=== PATIENT | male | born 1930 | race Hispanic/Latino ===

== ENCOUNTER 2019-09-13 16:49 | Emergency (ER) | payer MEDICARE, BC ==
[2019-09-13] MEDS ORDERED: Adacel (T-DAP) 0.5 ML SYRINGE ONE (17:27)
[2019-09-13] MEDS ORDERED: Lidocaine 2% w/Epinephrine 1:200K 20 ML VIAL ONE (17:49)
--- NOTE | 2019-09-13 17:58 | CT ---
CT OF THE BRAIN WITHOUT CONTRAST: 09/13/19 Diffuse atrophy is present with minimal compensatory dilatation of the ventricles. No intracranial bl eeding or extra-axial hematoma was seen. There is no sign of acute stroke, mass or edema. The calvari um appears intact. A lacerated area of swelling is seen over the left forehead. The visible paranasal sinuses are clear. IMPRESSION: No acute intracranial findings. POS: HOME
[2019-09-13] MEDS ORDERED: Bacitracin 1 PK ONE (18:04)
--- NOTE | 2019-09-13 19:33 | CT ---
CT OF THE CERVICAL SPINE 09/13/[address] of the cervical spine was performed for evaluation after trauma. Axial slices were acquired followed by coronal and sagittal reconstructions. No acute fracture was seen at any level. The C1 to dens distance is normal and the soft tissues are normal in thickness. 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 It is obviously old and not acute. Disc space narrowing is present at C5-C6. Findings by level follow: C1-C2: No acute findings. C2-C3: Mild central disc protrusion without evidence of impingement. Foramina patent. C3-C4: Mild right foraminal narrowing due to osteophytes. C4-C5: Mild right foraminal narrowing and facet arthritis on the right. C5-C6: Moderate bilateral foraminal narrowing due to osteophytes, left a little more so than right. C6-C7: No acute findings. C7-T1: No acute findings. Old T1 spinous process fracture noted. T1-T2: No acute findings. The lung apices are clear. No pneumothorax was seen. IMPRESSION: 1. Old spinous process fracture of T1 but no acute bony injuries were seen. 2. Scattered degenerative changes as noted. Scan called to Dr. Reilly at [id number] on 09/13/19. POS: HOME
== END 2019-09-13 18:25 | disposition home or self-care (01) ==
LOC: BURERS 16:49
DX: S01.81XA Laceration without foreign body of other part of head, initial encounter (principal); Z23 Encounter for immunization; W01.0XXA Fall on same level from slipping, tripping and stumbling without subsequent striking against object, initial encounter; W22.8XXA Striking against or struck by other objects, initial encounter
CPT/HCPCS: 12002; 70450; 72125; 90471; 90715

== ENCOUNTER 2019-09-20 16:22 | Emergency (ER) | payer MEDICARE, BC | END 2019-09-20 16:38 | disposition home or self-care (01) | LOC: BURERS 16:22 | DX: S01.81XD Laceration without foreign body of other part of head, subsequent encounter (principal) ==

== ENCOUNTER 2020-09-07 19:08 | Inpatient (IN) | payer OTHER, MEDICARE, BC ==
[2020-09-07 22:38] VITALS: BMI 22.4
[2020-09-08] MEDS: Polyethylene Glycol 3350 17 GM Packet PO SCH (09:35)
[2020-09-08] MEDS: Senokot S 8.6-50 MG TAB PO SCH ×2 (09:35→20:26)
[2020-09-08] MEDS: Sulfameth/Trimethoprim DS 800-160mg TAB PO SCH ×2 (09:36→20:26)
[2020-09-08] MEDS: Acetaminophen 500 MG TAB PO SCH ×3 (09:38→20:25)
[2020-09-08] MEDS: traMADol HCl 50 MG TAB PO SCH ×3 (09:40→20:24)
[2020-09-08] MEDS: Aspirin 81 mg Enteric Coated Tablet PO SCH ×2 (09:46→20:26)
[2020-09-09] MEDS: Acetaminophen 500 MG TAB PO SCH ×4 (02:17→19:30)
[2020-09-09] MEDS: traMADol HCl 50 MG TAB PO SCH ×4 (02:18→19:30)
[2020-09-09] MEDS: Senokot S 8.6-50 MG TAB PO SCH ×2 (08:11→20:28)
[2020-09-09] MEDS: Polyethylene Glycol 3350 17 GM Packet PO SCH (08:11)
[2020-09-09] MEDS: Sulfameth/Trimethoprim DS 800-160mg TAB PO SCH ×2 (08:12→20:28)
[2020-09-09] MEDS: Aspirin 81 mg Enteric Coated Tablet PO SCH ×2 (08:12→20:28)
[2020-09-10] MEDS: traMADol HCl 50 MG TAB PO SCH ×4 (01:30→20:20)
[2020-09-10] MEDS: Acetaminophen 500 MG TAB PO SCH ×4 (01:30→20:21)
[2020-09-10 06:00] LABS: Chloride 105 mmol/L (98-107); Potassium 4.7 mmol/L (3.5-5.1); Sodium 138 mmol/L (136-145)
[2020-09-10 06:01] LABS: ALT (SGPT) Less than 7 U/L (8-55); AST (SGOT) 28 U/L (5-34); Albumin 3.5 g/dL (3.4-4.8); Alkaline Phosphatase 66 U/L (40-110); Anion Gap 13 mmol/L (10-20); BUN (Urea Nitrogen) 15 mg/dL (8.4-25.7); Bilirubin, Total 0.5 mg/dL (0.2-1.2); Calc. Creatinine Clearance 37 mL/min (70-130); Calcium 8.8 mg/dL (7.8-10.44); Carbon Dioxide 25 mmol/L (23-31); Globulin 3.1 g/dL (2.4-3.5); Glucose 104 mg/dL (83-110); Protein, Total 6.6 g/dL (5.8-8.1)
[2020-09-10 06:12] LABS: #Basophils 0.1 thou/uL (0.0-0.2); #Eosinphils 0.2 thou/uL (0.0-0.7); #Lymphocytes 0.9 thou/uL (1.20-3.40); #Monocytes 0.3 thou/uL (0.11-0.59); #Neutrophils 4.4 thou/uL (1.40-6.50); %Basophils 1.1 % (0.0-1.0); %Eosinophils 3.7 % (0.0-10.0); %Lymphocytes 15.2 % (21.0-51.0); %Monocytes 4.9 % (0.0-10.0); %Neutrophils 75.2 % (42.0-75.0); Hemoglobin 8.8 g/dL (14.0-18.0); Mean Corpuscular HGB CONC 32.6 g/dL (32.0-36.0); Mean Corpuscular Hemoglobin 31.6 pg (27.0-31.0); Mean Corpuscular Volume 96.9 fL (78.0-98.0); Mean Platelet Volume 6.9 fL (7.4-10.4); Platelet Count 195 thou/uL (130-400); RBC Distribution Width 13.2 % (11.5-14.5); Red Blood Cell (RBC) Count 2.79 mill/uL (4.70-6.10); White Blood Cell (WBC) Count 5.9 thou/uL (4.8-10.8)
[2020-09-10] MEDS: Senokot S 8.6-50 MG TAB PO SCH ×2 (08:32→20:21)
[2020-09-10] MEDS: Polyethylene Glycol 3350 17 GM Packet PO SCH (08:32)
[2020-09-10] MEDS: Aspirin 81 mg Enteric Coated Tablet PO SCH ×2 (08:32→20:21)
[2020-09-10] MEDS: Sulfameth/Trimethoprim DS 800-160mg TAB PO SCH ×2 (08:32→20:21)
[2020-09-11] MEDS: Acetaminophen 500 MG TAB PO SCH ×4 (01:34→20:23)
[2020-09-11] MEDS: traMADol HCl 50 MG TAB PO SCH ×4 (01:35→20:24)
[2020-09-11] MEDS: Aspirin 81 mg Enteric Coated Tablet PO SCH ×2 (08:21→20:24)
[2020-09-11] MEDS: Sulfameth/Trimethoprim DS 800-160mg TAB PO SCH (08:21)
[2020-09-11] MEDS: Senokot S 8.6-50 MG TAB PO SCH ×2 (08:21→20:22)
[2020-09-11] MEDS: Polyethylene Glycol 3350 17 GM Packet PO SCH (08:21)
[2020-09-11] MEDS ORDERED: Ibuprofen 600 MG TAB PO PRN (17:44)
[2020-09-12] MEDS: traMADol HCl 50 MG TAB PO SCH ×4 (02:12→20:18)
[2020-09-12] MEDS: Acetaminophen 500 MG TAB PO SCH ×4 (02:12→20:18)
[2020-09-12] MEDS: Senokot S 8.6-50 MG TAB PO SCH ×2 (08:14→20:17)
[2020-09-12] MEDS: Aspirin 81 mg Enteric Coated Tablet PO SCH ×2 (08:14→20:17)
[2020-09-12] MEDS: Polyethylene Glycol 3350 17 GM Packet PO SCH (08:15)
[2020-09-13] MEDS: Acetaminophen 500 MG TAB PO SCH ×4 (02:07→19:36)
[2020-09-13] MEDS: traMADol HCl 50 MG TAB PO SCH ×4 (02:07→19:37)
[2020-09-13] MEDS: Senokot S 8.6-50 MG TAB PO SCH ×2 (08:46→20:22)
[2020-09-13] MEDS: Aspirin 81 mg Enteric Coated Tablet PO SCH ×2 (08:47→20:22)
[2020-09-13] MEDS: Polyethylene Glycol 3350 17 GM Packet PO SCH (08:52)
[2020-09-14] MEDS: Acetaminophen 500 MG TAB PO SCH ×4 (00:53→19:56)
[2020-09-14] MEDS: traMADol HCl 50 MG TAB PO SCH ×4 (00:54→19:56)
[2020-09-14] MEDS: Aspirin 81 mg Enteric Coated Tablet PO SCH ×2 (08:18→19:55)
[2020-09-14] MEDS: Polyethylene Glycol 3350 17 GM Packet PO SCH (08:19)
[2020-09-14] MEDS: Senokot S 8.6-50 MG TAB PO SCH ×2 (08:21→19:55)
[2020-09-15] MEDS: Acetaminophen 500 MG TAB PO SCH ×4 (02:47→19:48)
[2020-09-15] MEDS: traMADol HCl 50 MG TAB PO SCH ×4 (02:47→19:49)
[2020-09-15] MEDS: Senokot S 8.6-50 MG TAB PO SCH ×2 (08:27→21:00)
[2020-09-15] MEDS: Aspirin 81 mg Enteric Coated Tablet PO SCH ×2 (08:27→19:50)
[2020-09-15] MEDS: Polyethylene Glycol 3350 17 GM Packet PO SCH (08:31)
[2020-09-16] MEDS: Acetaminophen 500 MG TAB PO SCH ×4 (01:30→20:21)
[2020-09-16] MEDS: traMADol HCl 50 MG TAB PO SCH ×4 (01:30→20:21)
[2020-09-16] MEDS ORDERED: Ibuprofen 100 MG/5 ML UDCUP ONE (02:40)
[2020-09-16] MEDS: Senokot S 8.6-50 MG TAB PO SCH ×2 (08:24→20:22)
[2020-09-16] MEDS: Aspirin 81 mg Enteric Coated Tablet PO SCH ×2 (08:28→20:22)
[2020-09-16] MEDS: Polyethylene Glycol 3350 17 GM Packet PO SCH (09:09)
[2020-09-16] MEDS ORDERED: Oxymetazoline HCl 0.05% (30 ML BOT) ONE (11:03)
[2020-09-16] MEDS ORDERED: Benzocaine 20% Spray 60 ML CAN ONE (11:04)
[2020-09-16 17:15] VITALS: BP 121/62; TEMP 98.7
== END 2020-09-16 22:30 | disposition short-term general hospital (02) | DRG 560 ==
LOC: BURMED 19:08
PROVIDERS: ADMIT Family Medicine; ATTEND Family Medicine
DX: S72.141D Displaced intertrochanteric fracture of right femur, subsequent encounter for closed fracture with routine healing (principal); N39.0 Urinary tract infection, site not specified; S72.142A Displaced intertrochanteric fracture of left femur, initial encounter for closed fracture; W19.XXXD Unspecified fall, subsequent encounter; R53.1 Weakness; W19.XXXA Unspecified fall, initial encounter; Y92.239 Unspecified place in hospital as the place of occurrence of the external cause
CPT/HCPCS: 36415; 80053; 85025

== ENCOUNTER 2020-09-20 15:41 | Inpatient (IN) | payer MEDICARE, BC ==
[2020-09-20] MEDS ORDERED: Ibuprofen 200 MG TAB PO PRN (19:52)
[2020-09-20] MEDS ORDERED: Ferrous Sulfate 325 MG TAB PO SCH (20:30)
[2020-09-20] MEDS ORDERED: Sulfameth/Trimethoprim DS 800-160mg TAB PO SCH (21:00)
[2020-09-20] MEDS: Ascorbic Acid 500 mg Chewable Tablet PO SCH (21:46)
[2020-09-20] MEDS: Aspirin 81 mg Enteric Coated Tablet PO SCH (21:46)
[2020-09-20] MEDS: Senokot S 8.6-50 MG TAB PO SCH (21:47)
[2020-09-21] MEDS: Acetaminophen 500 MG TAB PO SCH ×4 (00:20→17:40)
[2020-09-21] MEDS: traMADol HCl 50 MG TAB PO SCH ×4 (00:21→17:41)
[2020-09-21] MEDS: Enoxaparin Sodium 40 MG/0.4 ML SYRINGE SC SCH (08:39)
[2020-09-21] MEDS: Aspirin 81 mg Enteric Coated Tablet PO SCH ×2 (08:39→20:10)
[2020-09-21] MEDS: Ascorbic Acid 500 mg Chewable Tablet PO SCH ×2 (08:39→20:10)
[2020-09-21] MEDS: Ferrous Sulfate 325 MG TAB PO SCH ×2 (08:39→17:40)
[2020-09-21] MEDS: Senokot S 8.6-50 MG TAB PO SCH ×2 (08:40→20:11)
[2020-09-21] MEDS: Polyethylene Glycol 3350 17 GM Packet PO SCH (08:40)
[2020-09-22] MEDS: Acetaminophen 500 MG TAB PO SCH ×4 (00:38→17:59)
[2020-09-22] MEDS: traMADol HCl 50 MG TAB PO SCH ×4 (00:39→17:58)
[2020-09-22] MEDS: Senokot S 8.6-50 MG TAB PO SCH ×2 (08:24→20:44)
[2020-09-22] MEDS: Enoxaparin Sodium 40 MG/0.4 ML SYRINGE SC SCH (08:26)
[2020-09-22] MEDS: Ascorbic Acid 500 mg Chewable Tablet PO SCH ×2 (08:27→20:43)
[2020-09-22] MEDS: Aspirin 81 mg Enteric Coated Tablet PO SCH ×2 (08:27→20:44)
[2020-09-22] MEDS: Ferrous Sulfate 325 MG TAB PO SCH ×2 (08:27→17:43)
[2020-09-22] MEDS: Polyethylene Glycol 3350 17 GM Packet PO SCH (08:31)
[2020-09-23] MEDS: Acetaminophen 500 MG TAB PO SCH ×4 (00:05→18:13)
[2020-09-23] MEDS: traMADol HCl 50 MG TAB PO SCH ×4 (00:05→18:14)
[2020-09-23 05:40] LABS: Platelet Count 242 thou/uL (130-400)
[2020-09-23] MEDS: Enoxaparin Sodium 40 MG/0.4 ML SYRINGE SC SCH (08:48)
[2020-09-23] MEDS: Aspirin 81 mg Enteric Coated Tablet PO SCH ×2 (08:48→21:17)
[2020-09-23] MEDS: Ferrous Sulfate 325 MG TAB PO SCH ×2 (08:49→17:05)
[2020-09-23] MEDS: Ascorbic Acid 500 mg Chewable Tablet PO SCH ×2 (08:49→21:17)
[2020-09-23] MEDS: Polyethylene Glycol 3350 17 GM Packet PO SCH (08:50)
[2020-09-23] MEDS: Senokot S 8.6-50 MG TAB PO SCH ×2 (08:50→21:20)
[2020-09-24] MEDS: traMADol HCl 50 MG TAB PO SCH ×4 (00:59→17:39)
[2020-09-24] MEDS: Acetaminophen 500 MG TAB PO SCH ×4 (00:59→17:38)
[2020-09-24] MEDS: Polyethylene Glycol 3350 17 GM Packet PO SCH (08:35)
[2020-09-24] MEDS: Ascorbic Acid 500 mg Chewable Tablet PO SCH ×2 (08:35→21:07)
[2020-09-24] MEDS: Aspirin 81 mg Enteric Coated Tablet PO SCH ×2 (08:35→21:07)
[2020-09-24] MEDS: Ferrous Sulfate 325 MG TAB PO SCH ×2 (08:35→17:39)
[2020-09-24] MEDS: Enoxaparin Sodium 40 MG/0.4 ML SYRINGE SC SCH (08:36)
[2020-09-24] MEDS: Senokot S 8.6-50 MG TAB PO SCH ×2 (08:36→21:07)
[2020-09-25] MEDS: Acetaminophen 500 MG TAB PO SCH ×4 (00:44→17:27)
[2020-09-25] MEDS: traMADol HCl 50 MG TAB PO SCH ×4 (00:45→17:26)
[2020-09-25] MEDS: Aspirin 81 mg Enteric Coated Tablet PO SCH ×2 (08:20→21:06)
[2020-09-25] MEDS: Ascorbic Acid 500 mg Chewable Tablet PO SCH ×2 (08:21→21:05)
[2020-09-25] MEDS: Senokot S 8.6-50 MG TAB PO SCH ×2 (08:21→21:05)
[2020-09-25] MEDS: Ferrous Sulfate 325 MG TAB PO SCH ×2 (08:21→17:26)
[2020-09-25] MEDS: Polyethylene Glycol 3350 17 GM Packet PO SCH (08:22)
[2020-09-25] MEDS: Enoxaparin Sodium 40 MG/0.4 ML SYRINGE SC SCH (08:23)
[2020-09-26] MEDS: Acetaminophen 500 MG TAB PO SCH ×4 (00:25→17:53)
[2020-09-26] MEDS: traMADol HCl 50 MG TAB PO SCH ×4 (00:25→17:55)
[2020-09-26 05:22] LABS: Hemoglobin 9.5 g/dL (14.0-18.0); Platelet Count 279 thou/uL (130-400)
[2020-09-26] MEDS: Senokot S 8.6-50 MG TAB PO SCH ×2 (08:35→21:06)
[2020-09-26] MEDS: Enoxaparin Sodium 40 MG/0.4 ML SYRINGE SC SCH (08:36)
[2020-09-26] MEDS: Ferrous Sulfate 325 MG TAB PO SCH ×2 (08:38→17:53)
[2020-09-26] MEDS: Ascorbic Acid 500 mg Chewable Tablet PO SCH ×2 (08:38→21:06)
[2020-09-26] MEDS: Aspirin 81 mg Enteric Coated Tablet PO SCH ×2 (08:38→21:06)
[2020-09-26] MEDS: Polyethylene Glycol 3350 17 GM Packet PO SCH (08:39)
[2020-09-26 22:54] LABS: Bilirubin Negative (Negative); Blood, Urine Negative (Negative); Clarity Cloudy (Clear); Glucose, Urine (Dipstick) Negative (Negative); Ketone, Urine Negative (Negative); Leukocyte Small (Negative); Nitrite Negative (Negative); Protein, Urine (Dipstick) Negative (Neg-Trace); Specific Gravity, Urine 1.015 (1.005-1.030); pH, Urine 6.5 (5.0-9.0)
[2020-09-26 23:00] LABS: Bacteria/HPF 1+ HPF (None Seen); Mucous/LPF 1+ LPF (<2+); RBC/HPF None Seen HPF (0-3); Squamous Epithelial 0-3 HPF (0-3)
[2020-09-27] MEDS: traMADol HCl 50 MG TAB PO SCH ×5 (00:03→23:58)
[2020-09-27] MEDS: Acetaminophen 500 MG TAB PO SCH ×5 (00:04→23:59)
[2020-09-27] MEDS: Polyethylene Glycol 3350 17 GM Packet PO SCH (08:08)
[2020-09-27] MEDS: Senokot S 8.6-50 MG TAB PO SCH ×2 (08:08→20:16)
[2020-09-27] MEDS: Enoxaparin Sodium 40 MG/0.4 ML SYRINGE SC SCH (08:08)
[2020-09-27] MEDS: Ferrous Sulfate 325 MG TAB PO SCH ×2 (08:10→17:05)
[2020-09-27] MEDS: Ascorbic Acid 500 mg Chewable Tablet PO SCH ×2 (08:10→20:16)
[2020-09-27] MEDS: Aspirin 81 mg Enteric Coated Tablet PO SCH ×2 (08:11→20:16)
[2020-09-27 19:07] VITALS: BMI 27.6
[2020-09-27] MEDS ORDERED: Ibuprofen 200 MG TAB PO PRN (19:23)
[2020-09-28] MEDS: traMADol HCl 50 MG TAB PO SCH ×3 (05:34→17:52)
[2020-09-28] MEDS: Acetaminophen 500 MG TAB PO SCH ×3 (05:35→17:54)
[2020-09-28] MEDS: Enoxaparin Sodium 40 MG/0.4 ML SYRINGE SC SCH (08:19)
[2020-09-28] MEDS: Aspirin 81 mg Enteric Coated Tablet PO SCH ×2 (08:21→20:24)
[2020-09-28] MEDS: Ferrous Sulfate 325 MG TAB PO SCH ×2 (08:22→17:51)
[2020-09-28] MEDS: Ascorbic Acid 500 mg Chewable Tablet PO SCH ×2 (08:22→20:23)
[2020-09-28] MEDS: Polyethylene Glycol 3350 17 GM Packet PO SCH (08:23)
[2020-09-28] MEDS: Senokot S 8.6-50 MG TAB PO SCH ×2 (08:23→20:23)
[2020-09-29] MEDS: Acetaminophen 500 MG TAB PO SCH ×4 (00:13→17:35)
[2020-09-29] MEDS: traMADol HCl 50 MG TAB PO SCH ×4 (00:14→17:35)
[2020-09-29] MEDS: Ferrous Sulfate 325 MG TAB PO SCH ×2 (08:29→17:35)
[2020-09-29] MEDS: Senokot S 8.6-50 MG TAB PO SCH ×2 (08:29→21:08)
[2020-09-29] MEDS: Ascorbic Acid 500 mg Chewable Tablet PO SCH ×2 (08:30→21:08)
[2020-09-29] MEDS: Aspirin 81 mg Enteric Coated Tablet PO SCH ×2 (08:30→21:08)
[2020-09-29] MEDS: Polyethylene Glycol 3350 17 GM Packet PO SCH (08:30)
[2020-09-29] MEDS: Enoxaparin Sodium 40 MG/0.4 ML SYRINGE SC SCH (08:30)
[2020-09-29 08:54] LABS: Hemoglobin 10.9 g/dL (14.0-18.0); Platelet Count 346 thou/uL (130-400)
[2020-09-30] MEDS: traMADol HCl 50 MG TAB PO SCH ×5 (00:26→23:08)
[2020-09-30] MEDS: Acetaminophen 500 MG TAB PO SCH ×5 (00:26→23:07)
[2020-09-30] MEDS: Enoxaparin Sodium 40 MG/0.4 ML SYRINGE SC SCH (08:28)
[2020-09-30] MEDS: Ferrous Sulfate 325 MG TAB PO SCH ×2 (08:28→17:18)
[2020-09-30] MEDS: Polyethylene Glycol 3350 17 GM Packet PO SCH (08:28)
[2020-09-30] MEDS: Senokot S 8.6-50 MG TAB PO SCH ×2 (08:28→21:03)
[2020-09-30] MEDS: Aspirin 81 mg Enteric Coated Tablet PO SCH ×2 (08:29→20:29)
[2020-09-30] MEDS: Ascorbic Acid 500 mg Chewable Tablet PO SCH ×2 (08:29→20:29)
[2020-10-01] MEDS: traMADol HCl 50 MG TAB PO SCH ×4 (05:42→23:41)
[2020-10-01] MEDS: Acetaminophen 500 MG TAB PO SCH ×4 (05:43→23:40)
[2020-10-01] MEDS ORDERED: Polyethylene Glycol 3350 17 GM Packet PO PRN (07:16)
[2020-10-01] MEDS ORDERED: Senokot S 8.6-50 MG TAB PO PRN (07:16)
[2020-10-01] MEDS: Ascorbic Acid 500 mg Chewable Tablet PO SCH ×2 (08:46→20:29)
[2020-10-01] MEDS: Enoxaparin Sodium 40 MG/0.4 ML SYRINGE SC SCH (08:47)
[2020-10-01] MEDS: Aspirin 81 mg Enteric Coated Tablet PO SCH ×2 (08:47→20:28)
[2020-10-01] MEDS: Ferrous Sulfate 325 MG TAB PO SCH ×2 (08:47→17:36)
[2020-10-02 05:17] LABS: Hemoglobin 9.8 g/dL (14.0-18.0); Platelet Count 361 thou/uL (130-400)
[2020-10-02] MEDS: Acetaminophen 500 MG TAB PO SCH ×3 (05:35→17:41)
[2020-10-02] MEDS: traMADol HCl 50 MG TAB PO SCH ×3 (05:36→17:42)
[2020-10-02] MEDS: Aspirin 81 mg Enteric Coated Tablet PO SCH ×2 (09:21→21:15)
[2020-10-02] MEDS: Sulfameth/Trimethoprim DS 800-160mg TAB PO SCH ×2 (09:21→21:14)
[2020-10-02] MEDS: Ascorbic Acid 500 mg Chewable Tablet PO SCH ×2 (09:22→21:14)
[2020-10-02] MEDS: Ferrous Sulfate 325 MG TAB PO SCH ×2 (09:22→17:42)
[2020-10-02] MEDS: Enoxaparin Sodium 40 MG/0.4 ML SYRINGE SC SCH (09:22)
[2020-10-02] MEDS ORDERED: Polyethylene Glycol 3350 17 GM Packet PO PRN (16:45)
[2020-10-02] MEDS ORDERED: Senokot S 8.6-50 MG TAB PO PRN (16:46)
[2020-10-03] MEDS: Acetaminophen 500 MG TAB PO SCH ×3 (00:12→11:59)
[2020-10-03] MEDS: traMADol HCl 50 MG TAB PO SCH ×3 (00:13→12:01)
[2020-10-03 06:38] VITALS: BP 106/62; TEMP 98.1
[2020-10-03] MEDS: Sulfameth/Trimethoprim DS 800-160mg TAB PO SCH (08:48)
[2020-10-03] MEDS: Aspirin 81 mg Enteric Coated Tablet PO SCH (08:49)
[2020-10-03] MEDS: Ascorbic Acid 500 mg Chewable Tablet PO SCH (08:50)
[2020-10-03] MEDS: Ferrous Sulfate 325 MG TAB PO SCH (08:50)
[2020-10-03] MEDS ORDERED: Enoxaparin Sodium 30 MG/0.3 ML SYRINGE SC SCH (09:00)
[2020-10-03] MEDS ORDERED: Enoxaparin Sodium 40 MG/0.4 ML SYRINGE SC SCH (09:00)
== END 2020-10-03 15:38 | DRG 559 ==
LOC: UNDOADMIN 17:30 → BURMED 17:30 → UNDODISIN 09-27 18:20
PROVIDERS: ADMIT Family Medicine; ATTEND Family Medicine
DX: S72.142D Displaced intertrochanteric fracture of left femur, subsequent encounter for closed fracture with routine healing (principal); I50.21 Acute systolic (congestive) heart failure; I42.9 Cardiomyopathy, unspecified; N39.0 Urinary tract infection, site not specified; W19.XXXD Unspecified fall, subsequent encounter; D50.9 Iron deficiency anemia, unspecified; I11.0 Hypertensive heart disease with heart failure; Z79.82 Long term (current) use of aspirin; Z79.899 Other long term (current) drug therapy; Z90.79 Acquired absence of other genital organ(s); Z90.49 Acquired absence of other specified parts of digestive tract; Z85.46 Personal history of malignant neoplasm of prostate
CPT/HCPCS: 36415; 36416; 81001; 82565; 85014; 85018; 85049; J1650

== ENCOUNTER 2020-10-10 10:29 | Outpatient (CLI) | payer MEDICARE, BC ==
[2020-10-10 10:47] LABS: Hemoglobin 11.1 g/dL (14.0-18.0); Mean Corpuscular HGB CONC 33.3 g/dL (32.0-36.0); Mean Corpuscular Hemoglobin 32.3 pg (27.0-31.0); Mean Corpuscular Volume 97.1 fL (78.0-98.0); Mean Platelet Volume 5.8 fL (7.4-10.4); Platelet Count 386 thou/uL (130-400); Red Blood Cell (RBC) Count 3.42 mill/uL (4.70-6.10); White Blood Cell (WBC) Count 6.3 thou/uL (4.8-10.8)
[2020-10-10 11:09] LABS: ALT (SGPT) 16 U/L (8-55); AST (SGOT) 18 U/L (5-34); Albumin 4.3 g/dL (3.4-4.8); Alkaline Phosphatase 150 U/L (40-110); Anion Gap 15 mmol/L (10-20); BUN (Urea Nitrogen) 38 mg/dL (8.4-25.7); Bilirubin, Direct 0.2 mg/dL (0.1-0.3); Bilirubin, Total 0.5 mg/dL (0.2-1.2); Calc. Creatinine Clearance 0 mL/min (70-130); Calcium 9.5 mg/dL (7.8-10.44); Carbon Dioxide 18 mmol/L (23-31); Cardiac Risk 2.5 (Less than 4.5); Chloride 103 mmol/L (98-107); Cholesterol 163 mg/dl (< 200 Desired); Glucose 102 mg/dL (83-110); HDL Cholesterol 65 mg/dL (>60 Neg Risk); LDL Cholesterol, Calculated 81 mg/dL; Magnesium 2.4 mg/dL (1.6-2.6); Potassium 4.9 mmol/L (3.5-5.1); Sodium 131 mmol/L (136-145); Triglycerides 87 mg/dL (Less than 150)
== END 2020-10-10 10:30 | disposition home or self-care (01) ==
LOC: BURMANOR 10:29
PROVIDERS: ATTEND Family Medicine
DX: I11.0 Hypertensive heart disease with heart failure (principal); I50.9 Heart failure, unspecified; I35.1 Nonrheumatic aortic (valve) insufficiency
CPT/HCPCS: 80048; 80061; 80076; 83735; 84443; 85027

== ENCOUNTER 2020-10-19 11:57 | Outpatient (CLI) | payer MEDICARE, BC | END 2020-10-19 11:58 | disposition home or self-care (01) | LOC: BURRAD 11:57 | PROVIDERS: ATTEND Family Medicine | DX: M25.552 Pain in left hip (principal); Z98.890 Other specified postprocedural states; W19.XXXA Unspecified fall, initial encounter ==